=== PATIENT | female | born 1975 | race Two or more races ===

== ENCOUNTER 2020-01-17 22:07 | Emergency (ER) | payer SELFPAY ==
[~2020-01-17] VITALS: Ht 149.9 cm; Wt 68.0 kg
--- NOTE | 2020-01-17 22:19 | NUR ---
Ambulates with steady gait. patient came to er c/o neck pain. a/ox 4. Speaks in complete sentences. Able to make needs known, follows commands. No neuro deficits noted. No cardiovascular distress noted. Respirations even and unlabored. No SOB noted. Denies n/v/d at this time. Denies /GI distress at this time Safety precautions in place per protocol. Gurney at lowest position. SR up x2. Call light within reach. Instructed patient to call nurse for assistance. Monitor patient accordingly. Will continue to monitor.
--- NOTE | 2020-01-17 22:20 | NUR ---
Dr. Alonzo at bedside [facility] [place].
--- NOTE | 2020-01-17 22:45 | NUR ---
Patient discharged to home in stable condition. Written and verbal after care instructions given. Patient verbalizes understanding of instructions. Stressed follow up or return to ER for worsening s/s. Ambulates with steady gait
[2020-01-17 22:47] VITALS: BP 126/75
== END 2020-01-17 22:46 | disposition home or self-care (01) ==
LOC: ER 22:08
DX: S29.012D Strain of muscle and tendon of back wall of thorax, subsequent encounter (principal); S21.202D Unspecified open wound of left back wall of thorax without penetration into thoracic cavity, subsequent encounter; Y04.8XXD Assault by other bodily force, subsequent encounter; M54.6 Pain in thoracic spine
CPT/HCPCS: A4663